=== PATIENT | female | born 1965 | race Caucasian/White ===

== ENCOUNTER 2017-01-08 10:10 | Inpatient (IN) ==
[2017-01-08 10:32] LABS: BASO% 0.5 % (0.0-0.8); EOS# 0.26 X1000 (0.0-0.7); EOS% 1.7 % (0.0-10.0); HEMATOCRIT 34.8 % (37.0-47.0); HEMOGLOBIN 10.2 g/dL (12.0-16.0); IMM GRAN# 0.09 X1000 (0.0-0.04); IMM GRAN% 0.6 % (0.0-0.5); LYMPH# 1.35 X1000 (1.2-3.4); LYMPH% 8.9 % (20.5-51.1); MANUAL DIFF NEEDED? NO; MCH 25.1 PG (27-31); MCHC 29.3 g/dL (33-37); MCV 85.7 FL (81-99); MONO# 1.63 X1000 (0.11-0.59); MONO% 10.7 % (1.7-9.3); MPV 10.7 FL (7.4-10.4); NEUT% 77.6 % (42.2-75.2); PLT 356 X1000 (130-400); RBC 4.06 XMIL (4.2-5.4)
--- NOTE | 2017-01-08 10:37 | PROVIDER DOCUMENTATION ---
This chart was entered by Mercedes Flores Scribe, acting as scribe for Alanna Gilbert CRNP. HPI-Respiratory General - General Chief Complaint: Shortness of Breath Stated Complaint: SOB/COPD Time Seen by Provider: 01/08/17 10:17 Source: patient Allergies/Adverse Reactions: Patient Allergies Allergy/AdvReac Type Severity Reaction Status Date / Time doxycycline Allergy RASH Verified 09/21/15 17:55 Penicillins Allergy Unknown Verified 09/21/15 17:55 Sulfa (Sulfonamide Allergy RASH Verified 09/21/15 17:55 Antibiotics) Home Medications: Home Medication List Medication Instructions Recorded Confirmed Last Taken Type Docusate Sodium [Colace] 100 mg PO BID 05/29/15 09/21/15 09/21/15 History Haloperidol Decanoate [Haldol 150 mg IM ORDERED 05/29/15 09/21/15 Unknown History Decanoate 100] [place] Carbonate 600 mg PO BID 05/29/15 09/21/15 09/21/15 History Metoprolol Tartrate 50 mg PO BID 05/29/15 09/21/15 09/21/15 History Zolpidem [Ambien] 5 mg PO QHS 05/29/15 09/21/15 09/20/15 History Olanzapine [Zyprexa] 2.5 mg PO QHS #30 tablet 06/05/15 09/21/15 09/20/15 Rx - History of Present Illness-Resp Nature of Presenting Problem: Pt is 51 y/o F presents to the ED with SOB. Pt states has been SOB for 4 days . Pt states stopped all psych meds 4 days ago. Pt states SOB has worsened. Pt's friends states Pt has a diagnosis of COPD. Quality of Pain: reports: tightness Severity in ED: reports: mild Onset/Duration: reports: 4 days ago Timing: reports: still present, getting worse Exposure: reports: unknown cause Cough Quality/Degree: reports: no cough Episode Frequency: no prior episodes Current Respiratory Medication Therapy: Initiated see nurses note Modifying Factors: improves with: nothing Associated Symptoms: reports: shortness of breath. denies: chest pain/soreness , cough, dizziness, earache, facial pain, fever/chills, flu-like symptoms, headache, heart racing, hurts to breathe, hyperventilating, lightheadedness, muscle/bodyaches, nasal congestion, nasal drainage, sinus pain, short of breath , sore throat, sweaty, wheezing Similar Symptoms Previously?: Yes Recently seen or treated by another doctor?: No Review of Systems - Adult - REVIEW OF SYSTEMS - ADULT Constitutional: reports: no symptoms reported Eyes: reports: no symptoms reported Ears, Nose, Mouth & Throat: reports: no symptoms reported Cardiovascular: reports: no symptoms reported Respiratory: reports: shortness of breath. denies: cough, wheezing Gastrointestinal: reports: no symptoms reported Genitourinary: reports: no symptoms reported Musculoskeletal: reports: no symptoms reported Integumentary: reports: no symptoms reported Neurological: reports: no symptoms reported Psychiatric: reports: no symptoms reported Endocrine: reports: no symptoms reported Hematologic/Lymphatic: reports: no symptoms reported Allergic/Immunologic: reports: no symptoms reported All Other Systems: Reviewed and Negative Past History - Adult - PAST MEDICAL HISTORY-ADULT Review of Records: reports: Nursing Assessment Review, Medications Reviewed, Social history reviewed & non-contributory. Major Childhood Illnesses: reports: denies history Cardiovascular: reports: HTN Respiratory: reports: COPD Gastrointestinal: reports: denies history Obstetrical/Gynecological: reports: denies history Genitourinary: reports: denies history Musculoskeletal: reports: denies history Neurological: reports: denies history Psychiatric: reports: bipolar Endocrine/Immune: reports: denies history Other Conditions: reports: denies history - PRIOR SURGERIES/PROCEDURES Surgical/Procedure History: reports: other (Bladder) - PRIOR HOSPITALIZATIONS Prior Hospitalizations: reports: none - IMMUNIZATION STATUS Childhood Immunizations: UTD Flu Vaccine: See Nurse Assessment - FAMILY HISTORY Family History: reviewed, not pertinent - SOCIAL HISTORY Smoking: quit less than 1 year, cigarettes Substance Use: denies Living Situation: family Physical Exam-General - PHYSICAL EXAM-ADULT Initial Vital Signs Reviewed: Yes - CONSTITUTIONAL General Appearance: appears well, alert, no apparent distress, obese - EYES Eyes: PERRL/EOMI, pink conjunctivae - HEAD, EARS, NOSE, MOUTH & THROAT HENMT: normocephalic/atraumatic, moist mucous membranes, normal ENT inspection - NECK Neck: supple, normal inspection - RESPIRATORY Respiratory: chest non-tender, lungs clear, normal breath sounds - CARDIOVASCULAR Cardiovascular: normal peripheral pulses, regular rate, rhythm - GASTROINTESTINAL (ABDOMEN) Abdominal Exam: normal bowel sounds, non tender, soft - LYMPHATIC Lymphatic: no adenopathy - MUSCULOSKELETAL Back Exam: normal inspection, no CVA tenderness, no vertebral tenderness Extremity: normal range of motion, non-tender, normal gait - SKIN Integumentary: normal color, normal turgor, warm/dry - NEUROLOGIC Neurologic: grossly normal - PSYCHIATRIC Psych/Mental Status: normal mood/affect, oriented x 3 Progress - PLAN OF CARE/RESULTS Progress/Plan/Lab Results: Vital Signs - 8 hr 01/08/17 10:14 01/08/17 10:46 Temperature 98.1 F Pulse Rate 95 H 96 H Respiratory Rate 26 H 18 Blood Pressure 154/92 126/071 O2 Sat by Pulse Oximetry 95 95 Laboratory Results - last 24 hr 01/08/17 01/08/17 01/08/17 10:24 10:24 10:24 WBC RBC Hgb Hct MCV MCH MCHC RDW Std Deviation Plt Count MPV Immature Gran % (Auto) Neut % (Auto) Lymph % (Auto) [place] % (Auto) Eos % (Auto) Baso % (Auto) Immature Gran # (Auto) Neut # (Auto) Lymph # (Auto) [place] # (Auto) Eos # (Auto) Baso # (Auto) PT INR APTT (Factor Assay) D-Dimer Sodium 132 L Potassium 3.3 L Chloride 100 Carbon Dioxide 23 L Anion Gap 10 BUN 15 Creatinine 1.3 H Estimated GFR/1.73 m2 43 BUN/Creatinine Ratio 12 Glucose 123 H Calculated Osmolality 267 Calcium 10.1 Magnesium 2.4 Total Bilirubin 0.30 AST 41 H ALT 41 H Alkaline Phosphatase 118 H Creatine Kinase 40 Troponin T 0.046 Anv-M-Iicrxkcvlbk Pept 63099 H Total Protein 6.3 Albumin 3.6 Globulin 3.0 Albumin/Globulin Ratio 1.0 Urine Source Urine Color Urine Clarity Urine pH Ur Specific [place] Urine Protein Urine Ketones Urine Blood Urine Nitrite Urine Bilirubin Urine Urobilinogen Urine Microscopic RBC Urine WBC Urine Microscopic WBC Ur Epithelial Cells Urine Glucose [place] 01/08/17 01/08/17 01/08/17 10:24 10:24 10:24 WBC 15.25 H RBC 4.06 L Hgb 10.2 L Hct 34.8 L MCV 85.7 MCH 25.1 L MCHC 29.3 L RDW Std Deviation 14.6 H Plt Count 356 MPV 10.7 H Immature Gran % (Auto) 0.6 H Neut % (Auto) 77.6 H Lymph % (Auto) 8.9 L [place] % (Auto) 10.7 H Eos % (Auto) 1.7 Baso % (Auto) 0.5 Immature Gran # (Auto) 0.09 H Neut # (Auto) 11.84 H Lymph # (Auto) 1.35 [place] # (Auto) 1.63 H Eos # (Auto) 0.26 Baso # (Auto) 0.08 PT 14.1 INR 1.06 APTT (Factor Assay) 30.4 D-Dimer 0.86 H Sodium Potassium Chloride Carbon Dioxide Anion Gap BUN Creatinine Estimated GFR/1.73 m2 BUN/Creatinine Ratio Glucose Calculated Osmolality Calcium Magnesium Total Bilirubin AST ALT Alkaline Phosphatase Creatine Kinase Troponin T Cxs-[id number]-Xxtzbjiolcc Pept Total Protein Albumin Globulin Albumin/Globulin Ratio Urine Source Urine Color Urine Clarity Urine pH Ur Specific [place] Urine Protein Urine Ketones Urine Blood Urine Nitrite Urine Bilirubin Urine Urobilinogen Urine Microscopic RBC Urine WBC Urine Microscopic WBC Ur Epithelial Cells Urine Glucose [place] 2.03 H* 01/08/17 12:00 WBC RBC Hgb Hct MCV MCH MCHC RDW Std Deviation Plt Count MPV Immature Gran % (Auto) Neut % (Auto) Lymph % (Auto) [place] % (Auto) Eos % (Auto) Baso % (Auto) Immature Gran # (Auto) Neut # (Auto) Lymph # (Auto) [place] # (Auto) Eos # (Auto) Baso # (Auto) PT INR APTT (Factor Assay) D-Dimer Sodium Potassium Chloride Carbon Dioxide Anion Gap BUN Creatinine Estimated GFR/1.73 m2 BUN/Creatinine Ratio Glucose Calculated Osmolality Calcium Magnesium Total Bilirubin AST ALT Alkaline Phosphatase Creatine Kinase Troponin T Vae-F-Hpxwobyhepx Pept Total Protein Albumin Globulin Albumin/Globulin Ratio Urine Source CLEAN CATCH Urine Color PINK Urine Clarity HAZY A Urine pH 7.0 Ur Specific [place] 1.005 Urine Protein 2+(100 mg/dL) A Urine Ketones NEGATIVE Urine Blood 4+ Urine Nitrite NEGATIVE Urine Bilirubin NEGATIVE Urine Urobilinogen NORMAL Urine Microscopic RBC TNTC A Urine WBC 2+ A Urine Microscopic WBC <10 Ur Epithelial Cells <10 Urine Glucose NEGATIVE [place] Orders Category Date Time Status Cardiac Monitoring DIRECTED Care 01/08/17 10:14 Active Saline Loc NOW Care 01/08/17 10:14 Active CHEST-2 VIEWS [RAD] Stat Exams 01/08/17 10:14 Completed ABG [RESP] Routine Lab 01/08/17 12:09 Ordered CBC WITH ELECTRONIC DIFF [HEME] Stat Lab 01/08/17 10:24 Completed CK PROFILE [SP CHEM] Stat Lab 01/08/17 10:24 Completed CK PROFILE [SP CHEM] Stat Lab 01/08/17 12:30 Ordered COMPREHENSIVE METABOLIC PANEL [CHEM] Stat Lab 01/08/17 10:24 Completed D-DIMER PL [COAG] Stat Lab 01/08/17 10:24 Completed LITHIUM [TDM] Stat Lab 01/08/17 10:24 Completed MAGNESIUM [CHEM] Stat Lab 01/08/17 10:24 Completed PRO B-NATRIURETIC PEPTIDE Stat Lab 01/08/17 10:[address]IME WITH INR PL [COAG] Stat Lab 01/08/17 10:[address] [COAG] Stat Lab 01/08/17 10:24 Completed TROPONIN T Stat Lab 01/08/17 10:24 Completed TROPONIN T Stat Lab 01/08/17 12:30 Ordered TSH Stat Lab 01/08/17 10:[address] W/POSS RFLX CULT [URINALYSIS] Stat Lab 01/08/17 12:00 Completed 0.9% Sodium Chloride Inj [Ns] 1,000 ml Med 01/08/17 11:07 Discontinued .ROUTE As Directed 0.9% Sodium Chloride Inj [Ns] 1,000 ml Med 01/08/17 11:51 Active IV 999 mls/hr EKG [EKG] Stat Ther 01/08/17 10:14 Draft EKG [EKG] Stat Ther 01/08/17 12:30 Ordered Discussed results and plan of care with patient. Patient agrees with plan and verbalizes understanding. Result Diagrams: 01/08/17 10:24 01/08/17 10:24 - EKG 1 Time of EKG reading by physician:: 10:41 EKG Read and Signed by:: Andrea Denise EKG Interpretation (*Must complete 3 of following elements*): Abnormal (T wave abnormality, consider lateral ischemia; prolonged QT) Rate: 95 Rhythm: sinus rhythm with frequent premature ventricular complexes Comments: left anterior fascicular block; - XRAY 1 XRAY Study: Chest XRAY Interpretation: Mild progressive enlargement of heart shadows. (Robyn) - CONSULTS/PCP/HOSPITALIST Notification #1 *Consult/PCP/Hospitalist*: Poison Control Time Discussed: 12:00 Reason/Comments: Consult Consult Disposition: other (Recommends ABG, and TSH with serial labs. If GI problems increase with worsening renal function patient may need dialysis.) #2 Consult: Dr. Arce Time Discussed: 12:36 Reason/Comments: Admission Consult Disposition: Admit Departure - Departure Date of Disposition Decision: 01/08/17 Time of Disposition Decision: 12:25 DIAGNOSIS: Renal insufficiency, Elevated liver enzymes, Elevated d-dimer CHF (congestive heart failure) Qualifiers: Congestive heart failure type: unspecified congestive heart failure type Congestive heart failure chronicity: acute Qualified Code(s): I50.9 - Heart failure, unspecified [place] toxicity Qualifiers: Encounter type: initial encounter Injury intent: undetermined intent Qualified Code(s): T56.894A - Toxic effect of other metals, undetermined, initial encounter Disposition: ADMITTED INPATIENT 09 Certified Medical Emergency: Emergent Condition: Stable Referrals and Follow-Ups: Molina Teran MD [Primary Care Provider] - - Critical Care Note This patient required my direct & personal management of CC.: No Attestation - Physician/ DAVY Attestation Patient care was provided by Advanced Practice Provider:: Yes Advanced Practice Provider:: Alanna Gilbert (The physician is on site and available for consultation but did not have face to face contact with the patient.) Advanced Practice Provider documentation review:: The Mid-level provider documentation, treatment plan and medical decision making was reviewed by the physician who agrees with all treatment and medical decision making by the MLP. This chart was documented by the indicated scribe, (Mercedes Flores Scribe) and accurately reflects the services I performed and decisions made by , Alanna Gilbert CRNP, as attested by the provider's signature.
[2017-01-08 10:45] LABS: ALBUMIN 3.6 g/dL (3.5-5.0); CALCIUM 10.1 mg/dL (8.8-10.2); MAGNESIUM 2.4 mg/dL (1.5-2.7); POTASSIUM 3.3 mmol/L (3.5-5.1); TOTAL BILIRUBIN 0.3 mg/dL (0.20-1.00); TOTAL PROTEIN 6.3 g/dL (6.3-8.3)
[2017-01-08 10:47] LABS: INR 1.06 (0.86-1.15); PROTIME 14.1 Seconds (12.1-15.5)
[2017-01-08 10:48] LABS: PTT PL 30.4 Seconds (22.6-43.9)
--- NOTE | 2017-01-08 10:53 | EKG Report ---
Test Performed on : 01/08/2017 10:41:14 AM Test Reason : CHEST PAIN Blood Pressure : / mmHG Vent. Rate : 095 BPM Atrial Rate : 095 BPM P-R Int : 204 ms QRS Dur : 116 ms QT Int : 394 ms P-R-T Axes : 049 -45 119 degrees QTc Int : 495 ms Sinus rhythm. with frequent premature ventricular complexes. Left anterior fascicular block T wave abnormality, consider lateral ischemia Prolonged QT Abnormal ECG When compared with ECG of 31-MAY-2015 19:10, Nonspecific T wave abnormality now evident in Inferior leads Unconfirmed Result
--- NOTE | 2017-01-08 11:03 | Diag Imaging Result Doc PS360 ---
CHEST-2 VIEWS - 01/08/2017 INDICATION: CP TECHNIQUE: COMPARISON: 09/21/2015 FINDINGS: There is mild enlargement of the heart shadow which has progressed since prior. Pulmonary vascularity is normal. No focal infiltrates, pneumothorax, or pleural effusion. IMPRESSION: Mild, progressive enlargement of the heart shadow. Electronically signed by Chris Carlson 01/08/2017 11:01 AM
[2017-01-08] MEDS ORDERED: NS 1,000 ML ONE (11:07)
[2017-01-08] MEDS ORDERED: NS 1,000 ML IV ONE ×3 (11:51→14:10)
[2017-01-08 12:09] LABS: URINE CULTURE PL NEEDED? NO
[2017-01-08 12:27] LABS: BILIRUBIN URINE NEGATIVE (NEGATIVE); BLOOD URINE 4+ (NEGATIVE); GLUCOSE URINE NEGATIVE (NEGATIVE); LEUKOCYTES URINE 2+ (NEGATIVE); NITRITE URINE NEGATIVE (NEGATIVE); PROTEIN URINE 2+(100 mg/dL) mg/dL (NEGATIVE); SP GRAVITY URINE 1.005; UROBILINOGEN URINE NORMAL
[2017-01-08 12:32] LABS: CLARITY HAZY (CLEAR); COLOR PINK; URINE EPITHELIAL CELLS <10 /HPF (<10); URINE RBC TNTC /HPF (<10); URINE SOURCE CLEAN CATCH; URINE WBC <10 /HPF (<10)
--- NOTE | 2017-01-08 14:33 | EKG Report ---
Test Performed on : 01/08/2017 12:54:03 PM Test Reason : repeat Blood Pressure : / mmHG Vent. Rate : 089 BPM Atrial Rate : 089 BPM P-R Int : 202 ms QRS Dur : 114 ms QT Int : 600 ms P-R-T Axes : 068 -47 090 degrees QTc Int : 730 ms Sinus rhythm. with frequent premature ventricular complexes. Left axis deviation Anterior infarct (cited on or before 08-JAN-2017) T wave abnormality, consider lateral ischemia Prolonged QT Abnormal ECG When compared with ECG of 08-JAN-2017 12:52, (Unconfirmed) premature atrial complexes. are no longer present Serial changes of Anterior infarct present Unconfirmed Result
[2017-01-08 14:44] LABS: BE -0.3 mmoll (-3.0-3.0); BLOOD TYPE ARTERIAL; DRAW SITE R RADIAL; METHB 0.6 % (0.0-1.5); O2(CT) 12.6 mL/dL (15.0-23.0); PCO2(98.6) 37 mmHg (35-45); PO2(98.6) 73 mmHg (60-100); SAMPLE BLOOD; SAO2 97.6 % (95.0-100.0); THB 9.4 g/dL (11.5-17.4); pH(98.6) 7.42 (7.35-7.45)
[2017-01-08 14:49] LABS: ALLEN TEST YES; MODALITY CANNULA
[2017-01-08] MEDS: ROCEPHIN 1 GM/NS 1 GM/50 ML IVPB IV SCH (15:11)
--- NOTE | 2017-01-08 15:34 | Diag Imaging Result Doc PS360 ---
RENAL STONE SEARCH - 01/08/2017 INDICATION: hematuria TECHNIQUE: A CT dose reduction protocol was used. COMPARISON: None FINDINGS: There is a small pericardial effusion visible. There is a simple cyst in the right lobe of the liver measuring about 3.4 cm. There are numerous phleboliths in the pelvis scattered everywhere. No radiodense renal stones. No hydronephrosis or hydroureter. No bowel obstruction or inflammation. Normal appendix. Urinary bladder, uterus, and rectum are normal. There is trace pelvic free fluid, presumably physiologic. 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 No acute bony lesions. IMPRESSION: Negative for renal stone disease. No acute disease. Electronically signed by Chris Carlson 01/08/2017 3:31 PM
--- NOTE | 2017-01-08 15:57 | HISTORY AND PHYSICAL ---
PRIMARY CARE PHYSICIAN: Dr. Teran. CHIEF COMPLAINT: Shortness of breath for 4 days that has progressively worsened. HISTORY OF PRESENTING ILLNESS: This is a 51-year-old female who presents to [facility] ER with complaints of shortness of breath for 4 days that has progressively worsened. States she gets fatigued with minimal exertion of less than 10 steps. States that she stopped all of her psych medications 4 days ago that included lithium, Artane, metoprolol and Ambien. Workup in the ER showed a white blood cell count of 15.25. Her D-dimer was 0.86. Sodium was 132, potassium 3.3, creatinine of 1.3. ProBNP was 10,556. TSH was 9.59. Her urinalysis showed negative nitrites, 4+ blood, 2+ white blood cells. Her lithium level was 2.03. She had a chest x-ray of mild progressive enlargement of the heart shadow. EKG was sinus rhythm with frequent PVCs at 95. REVIEW OF SYSTEMS: She denied any fever, chills, blurred vision, dizziness, chest pain, coughing. She is positive for shortness of breath. She denied any abdominal pain, constipation, diarrhea, burning or hurting with urination. PHYSICAL EXAMINATION: On arrival, she had a temperature of 98.1 degrees, pulse of 95, respirations 26, blood pressure 154/92, saturating 95% on room air. Currently saturating 97% on 2 L via nasal cannula. GENERAL: This is a 51-year-old female who is lying in the bed, and answers questions appropriately. HEENT: Normocephalic and atraumatic. Pupils are equal, round, reactive to light. Extraocular movements are intact. Oropharynx and nares are clear. NECK: Supple. LUNGS: Clear to auscultation bilaterally with equal lung expansion and chest wall movement. HEART: With regular rate and rhythm. No murmurs, rubs, or gallops. ABDOMEN: Soft, nontender, nondistended. Bowel sounds are present x4 quadrants. EXTREMITIES: No clubbing, cyanosis, or edema. NEUROLOGICAL: The cranial nerves 2-12 are grossly intact. ASSESSMENT: 1. [place] toxicity. 2. Leukocytosis. 3. Acute kidney injury. 4. Elevated D-dimer. 5. Hypokalemia. 6. Dehydration. 7. Hematuria. PLAN: She was admitted to the medical unit at [place], placed on telemetry. O2 per protocol. We will check an echocardiogram. We will check a bilateral lower extremity venous Doppler. With her creatinine being elevated at 1.3 we are going to do some gentle hydration of normal saline at 70 mL an hour. Recheck labs in the a.m. and if that is improved then we may can do a CTA of pulmonary arteriograms. Otherwise we will do a V/Q scan on Tuesday but I will evaluate that in the morning. We are going to do a renal stone search due to the hematuria. Place on Rocephin 1 gram IV q.24. Recheck a BMP and a CBC in the a.m. Continue her home medications except will hold her lithium and her Haldol Decanoate that she gets IM. Mom states it is due on the 12 of January so she should be able to get that from her doctor once she is discharged from the hospital. Her TSH is noted to be elevated and looking back at her previous ones they were within normal limits. We will get a free T4 also and make sure she has not developed a hypothyroidism. Dictated by ROSE MARIE Monroe for You Arce MD cc: ROSE MARIE Monroe MD Moses Awoniyi, MD
[2017-01-08] MEDS ORDERED: ZOFRAN IV PRN (16:34)
[2017-01-08] MEDS ORDERED: TYLENOL PO PRN (16:34)
[2017-01-08] MEDS ORDERED: LOVENOX SUBQ SCH (16:45)
[2017-01-08 17:24] LABS: CALCIUM 9.5 mg/dL (8.8-10.2); POTASSIUM 3.8 mmol/L (3.5-5.1)
--- NOTE | 2017-01-08 18:36 | Extremity Venous Study ---
Venous U/S Bilateral Legs - 01/08/2017 INDICATION: elevated ddimer TECHNIQUE: Bilateral lower extremity venous Doppler ultrasound COMPARISON: None FINDINGS: The deep veins are fully compressible. There is normal color and pulse wave Doppler signal. The deep veins are fully compressible. There is normal color and pulse wave Doppler signal. IMPRESSION: Negative exam. Electronically signed by Chris Carlson 01/08/2017 6:34 PM
[2017-01-08 21:11] LABS: MANUAL DIFF NEEDED? NO
[2017-01-08 21:13] LABS: BASO% 0.5 % (0.0-0.8); EOS# 0.23 X1000 (0.0-0.7); EOS% 1.8 % (0.0-10.0); HEMATOCRIT 30.5 % (37.0-47.0); IMM GRAN# 0.08 X1000 (0.0-0.04); IMM GRAN% 0.6 % (0.0-0.5); LYMPH# 1.57 X1000 (1.2-3.4); LYMPH% 12.5 % (20.5-51.1); MCH 25.8 PG (27-31); MCHC 29.5 g/dL (33-37); MCV 87.4 FL (81-99); MONO# 1.29 X1000 (0.11-0.59); MONO% 10.3 % (1.7-9.3); MPV 10.7 FL (7.4-10.4); NEUT% 74.3 % (42.2-75.2); PLT 301 X1000 (130-400); RBC 3.49 XMIL (4.2-5.4)
[2017-01-08 21:17] LABS: UR AMPHETAMINES QUAL NONE DETECTED (NONE DETECT); UR BARBITUATES QUAL NONE DETECTED (NONE DETECT); UR BENZODIAZEPIN QUAL NONE DETECTED (NONE DETECT); UR CANNABINOIDS QUAL NONE DETECTED (NONE DETECT); UR COCAINE QUAL NONE DETECTED (NONE DETECT); UR MDMA QUAL NONE DETECTED (NONE DETECT); UR METHADONE QUAL NONE DETECTED (NONE DETECT); UR METHAMPHETAMINE QUAL NONE DETECTED (NONE DETECT); UR OPIATES QUAL NONE DETECTED (NONE DETECT); UR OXYCODONE QUAL NONE DETECTED (NONE DETECT); UR PCP QUAL NONE DETECTED (NONE DETECT); UR TCA QUAL NONE DETECTED (NONE DETECT)
--- NOTE | 2017-01-08 21:19 | EKG Report ---
Test Performed on : 01/08/2017 9:12:27 PM Test Reason : [place] toxicity Blood Pressure : / mmHG Vent. Rate : 094 BPM Atrial Rate : 094 BPM P-R Int : 204 ms QRS Dur : 110 ms QT Int : 386 ms P-R-T Axes : 050 -36 128 degrees QTc Int : 482 ms Sinus rhythm. with frequent premature ventricular complexes. Left axis deviation ST \T\ T wave abnormality, consider lateral ischemia Prolonged QT Abnormal ECG When compared with ECG of 08-JAN-2017 12:54, (Unconfirmed) Nonspecific T wave abnormality now evident in Inferior leads T wave inversion more evident in Lateral leads QT has shortened Confirmed by Andrea Denise MD ([id number]) on 01/17/2017 10:20:38 PM
[2017-01-08] MEDS: AMBIEN PO SCH (21:27)
[2017-01-08] MEDS: COLACE PO SCH (21:27)
[2017-01-08] MEDS: LOPRESSOR PO SCH (21:27)
[2017-01-09 00:49] LABS: MANUAL DIFF NEEDED? NO
[2017-01-09 00:53] LABS: BASO% 0.6 % (0.0-0.8); EOS# 0.26 X1000 (0.0-0.7); EOS% 2.1 % (0.0-10.0); HEMATOCRIT 29.6 % (37.0-47.0); HEMOGLOBIN 8.6 g/dL (12.0-16.0); IMM GRAN# 0.05 X1000 (0.0-0.04); IMM GRAN% 0.4 % (0.0-0.5); LYMPH# 1.49 X1000 (1.2-3.4); LYMPH% 12.3 % (20.5-51.1); MCH 25.4 PG (27-31); MCHC 29.1 g/dL (33-37); MCV 87.3 FL (81-99); MONO# 1.37 X1000 (0.11-0.59); MONO% 11.3 % (1.7-9.3); MPV 10.7 FL (7.4-10.4); NEUT% 73.3 % (42.2-75.2); PLT 303 X1000 (130-400); RBC 3.39 XMIL (4.2-5.4)
[2017-01-09 06:28] LABS: BASO% 0.5 % (0.0-0.8); EOS# 0.28 X1000 (0.0-0.7); EOS% 2.4 % (0.0-10.0); HEMATOCRIT 30.5 % (37.0-47.0); HEMOGLOBIN 8.7 g/dL (12.0-16.0); IMM GRAN# 0.05 X1000 (0.0-0.04); IMM GRAN% 0.4 % (0.0-0.5); LYMPH# 1.28 X1000 (1.2-3.4); LYMPH% 11.1 % (20.5-51.1); MANUAL DIFF NEEDED? NO; MCH 25.1 PG (27-31); MCHC 28.5 g/dL (33-37); MCV 88.2 FL (81-99); MONO# 1.23 X1000 (0.11-0.59); MONO% 10.7 % (1.7-9.3); MPV 11.4 FL (7.4-10.4); NEUT% 74.9 % (42.2-75.2); PLT 302 X1000 (130-400); RBC 3.46 XMIL (4.2-5.4)
[2017-01-09 06:45] LABS: CALCIUM 9.2 mg/dL (8.8-10.2); POTASSIUM 3.4 mmol/L (3.5-5.1)
[2017-01-09] MEDS: LOPRESSOR PO SCH ×2 (09:42→21:21)
[2017-01-09] MEDS: COLACE PO SCH ×2 (09:42→21:21)
--- NOTE | 2017-01-09 09:57 | EKG Report ---
Test Performed on : 01/09/2017 09:37:34 AM Test Reason : Poision control recommendation Blood Pressure : / mmHG Vent. Rate : 088 BPM Atrial Rate : 088 BPM P-R Int : 208 ms QRS Dur : 110 ms QT Int : 402 ms P-R-T Axes : 033 -42 140 degrees QTc Int : 486 ms Normal sinus rhythm. Left axis deviation T wave abnormality, consider lateral ischemia Prolonged QT Abnormal ECG When compared with ECG of 08-JAN-2017 21:12, (Unconfirmed) premature ventricular complexes. are no longer present Confirmed by Andrea Denise MD ([id number]) on 01/17/2017 10:20:46 PM
[2017-01-09] MEDS ORDERED: SYNTHROID PO ONE (11:51)
[2017-01-09] MEDS: ARTANE PO SCH ×2 (12:37→21:20)
--- NOTE | 2017-01-09 14:55 | Diag Imaging Result Doc PS360 ---
ANGIOGRAM/PULMONARY ARTERIES - 01/09/2017 INDICATION: elev d dimer/sob TECHNIQUE: Axial CT images were obtained after administering intravenous contrast. Coronal MIP images were generated. A CT dose reduction protocol was used. COMPARISON: 06/03/2014 FINDINGS: There are numerous bilateral acute appearing pulmonary emboli involving essentially every segmental artery, and the right middle and lower lobar arteries. Many of these are occlusive. There is a small to moderate pericardial effusion. Stable benign-appearing cystic area in the right lobe of the liver. There is cardiomegaly. No infiltrates in the lungs. Bony structures are intact. IMPRESSION: Numerous acute bilateral pulmonary emboli. Relatively heavy clot burden. A report was immediately called to the patient's inpatient unit. Electronically signed by Chris Carlson 01/09/2017 2:53 PM
--- NOTE | 2017-01-09 16:00 | PROGRESS NOTE ---
DATE: 01/09/2017 SUBJECTIVE: The patient's history this morning is quite difficult to understand as it changes frequently. She states that she is short of breath and short of breath with any activity. Then she notes that she is short of breath when she lies flat in the bed and states it is better when she sits up. When inquired as to why she is lying flat in the bed instead of having the head of the bed elevated, she states that it does not make any change on her shortness of breath, which is what is corroborated by her mother. States that she is short of breath only when she gets up and moves around and then notes that she is short of breath only when she lies in the bed. Certainly, this makes her history quite difficult to follow this morning. PHYSICAL: Vital signs: Temperature 98, pulse 85, respiratory rate 18, blood pressure 121/60. Saturation 99% on 2 L. General: Patient is awake, alert, obese female who currently appears in no true respiratory distress. HEENT: Normocephalic, atraumatic. MICHAEL. Neck: Supple. CARDIOVASCULAR: Regular rate. Chest: Clear. Nonlabored. No crackles. No wheezing. Abdomen: Soft. Extremities: Moves all extremities. Neurologic: No changes. DIAGNOSTIC DATA: WBCs 11, hemoglobin and hematocrit 8 and 30. Potassium 3.4, creatinine 1.1. BNP 10,556. Thyroid stimulating hormones 9.5. ASSESSMENT: 1. [place] toxicity. [place] is currently down to 1.49. 2. Shortness of breath. Unclear as to the etiology of her shortness of breath. Certainly could be her lithium toxicity, could be her obesity and chronic failure to thrive. Could be her chronic deconditioning. Could be her hypothyroidism and certainly her elevated brain natriuretic peptide. 3. Hypothyroidism. We will place her on Synthroid. 4. Elevated proBNP. We will check an echocardiogram and we will continue to follow. Currently, her most recent chest x-ray yesterday was clear with no effusions. 5. Elevated D-dimer. Ultrasound is negative. CTA apparently was not done. We will order this and follow. cc: Yann Rick MD
[2017-01-09] MEDS: ROCEPHIN 1 GM/NS 1 GM/50 ML IVPB IV SCH (17:21)
[2017-01-09] MEDS: LOVENOX SUBQ SCH (17:22)
[2017-01-09] MEDS: AMBIEN PO SCH (21:21)
[2017-01-10 06:01] LABS: HEMATOCRIT 31.6 % (37.0-47.0); HEMOGLOBIN 8.9 g/dL (12.0-16.0); MCH 25.1 PG (27-31); MCHC 28.2 g/dL (33-37); MCV 89.3 FL (81-99); MPV 11.1 FL (7.4-10.4); RBC 3.54 XMIL (4.2-5.4)
[2017-01-10 06:19] LABS: ALBUMIN 3.1 g/dL (3.5-5.0); CALCIUM 9.4 mg/dL (8.8-10.2); MAGNESIUM 2.2 mg/dL (1.5-2.7); POTASSIUM 3.3 mmol/L (3.5-5.1); TOTAL BILIRUBIN 0.2 mg/dL (0.20-1.00); TOTAL PROTEIN 5.7 g/dL (6.3-8.3)
[2017-01-10 06:23] LABS: FREE T4 1.13 ng/dL (0.93-1.70)
[2017-01-10] MEDS: LOVENOX SUBQ SCH ×2 (06:43→17:45)
[2017-01-10] MEDS: SYNTHROID PO SCH (06:46)
[2017-01-10] MEDS ORDERED: SYNTHROID PO SCH (07:00)
[2017-01-10] MEDS ORDERED: KLOR-CON PO ONE (08:21)
--- NOTE | 2017-01-10 09:16 | PROGRESS NOTE ---
DATE: 01/10/2017 SUBJECTIVE: The patient notes that she is still having some shortness of breath, but has not really been out of bed. She denies any chest pains or palpitations. She denies any fevers or chills. She denies any dysuria, frequency, urgency. OBJECTIVE: Vital Signs: Reviewed. Temperature 97 degrees, pulse 88, respiratory rate 20, blood pressure 126/73, saturation 99% on 2 liters. General: The patient is awake, alert, oriented. She is currently in no respiratory distress. Speech is regular. Memory is intact. Neck: Supple. Cardiovascular: Regular rate. Chest: Relatively clear. Abdomen: Soft. Extremities: Moves all extremities. Neurologic: No changes. DIAGNOSTIC DATA: CT demonstrates numerous acute bilateral pulmonary emboli with a relatively heavy clot burden. Labs are stable. Hemoglobin and hematocrit are 8 and 30, WBCs down to 10. Potassium 3.3, creatinine 1.1. BNP is also decreased to 6400. ASSESSMENT: 1. Hypothyroidism. We will again increase her Synthroid to 75. 2. Elevated BNP, most likely secondary to pulmonary emboli, although we do not have an echocardiogram on the chart. Therefore, we will order an echocardiogram today. 3. Bilateral pulmonary emboli. The patient acknowledges that she has been very sedentary recently and has not been feeling well. 4. [place] toxicity has improved. 5. Acute kidney injury, resolved. 6. Hypokalemia. We will replace by mouth and recheck. 7. Obesity, certainly has increased her risk for pulmonary emboli. PLAN: We will continue Lovenox today. Consider changing over to Xarelto versus Coumadin in the morning, and we will follow. cc: Yann Rick MD
[2017-01-10] MEDS: COLACE PO SCH ×3 (10:02→20:16)
[2017-01-10] MEDS: ARTANE PO SCH ×3 (10:02→20:16)
[2017-01-10] MEDS: LOPRESSOR PO SCH ×3 (10:02→20:16)
--- NOTE | 2017-01-10 15:32 | ECHO REPORT ---
ORDER DATE: 01/09/2017 ECHOCARDIOGRAPHIC MEASUREMENTS: 1. Interventricular septum 1.2, left ventricular posterior wall 1.2, end diastolic diameter 5.7, left atrium 4.3, aorta 3. 2. Normal left ventricular cavity size. Reduced systolic function. Estimated ejection fraction of 40%. 3. Right ventricle is dilated with reduced right ventricular systolic function. 4. Aortic valve leaflets are trileaflet. Mitral valve was normal. Tricuspid valve was normal. 5. There is mild mitral regurgitation. 6. There is no aortic stenosis or regurgitation. 7. There is a [id number] tricuspid regurgitation. Peak velocity across the tricuspid valve was 2.6 m/sec. There is trace pulmonary regurgitation. 8. Anterior echo-free space suggestive of fat pad was noted. There is trivial posterior echo- free space suggestive of fat pad noted. Cannot rule out trace effusion. There is no evidence of tamponade. cc: MD Lou Coombs CRNP
[2017-01-10] MEDS: ROCEPHIN 1 GM/NS 1 GM/50 ML IVPB IV SCH (17:45)
[2017-01-10] MEDS: AMBIEN PO SCH ×2 (19:56→20:16)
[2017-01-10] MEDS ORDERED: HALOPERIDOL DECANOATE 150 MG IM SCH (21:45)
[2017-01-11] MEDS: LOVENOX SUBQ SCH ×2 (05:52→17:05)
[2017-01-11] MEDS: SYNTHROID PO SCH ×2 (05:52→06:35)
[2017-01-11 06:44] LABS: HEMOGLOBIN A1C 4.8 % (4.8-6.0)
[2017-01-11 07:08] LABS: HEMATOCRIT 32.3 % (37.0-47.0); HEMOGLOBIN 9.3 g/dL (12.0-16.0); MCH 25.5 PG (27-31); MCHC 28.8 g/dL (33-37); MCV 88.5 FL (81-99); MPV 11.1 FL (7.4-10.4); RBC 3.65 XMIL (4.2-5.4)
[2017-01-11 07:09] LABS: AGAP 6; ALKALINE PHOSPHATASE 103 U/L (32-104); BUN 9 mg/dL (8-22); CALCIUM 9.8 mg/dL (8.8-10.2); CHLORIDE 110 mmol/L (98-107); COSMO 280; GOT 16 U/L (10-30); GPT 31 U/L (10-36); MAGNESIUM 2.1 mg/dL (1.5-2.7); POTASSIUM 3.8 mmol/L (3.5-5.1); SODIUM 141 mmol/L (136-145); TCO2 25 mmol/L (25-35); TOTAL PROTEIN 5.6 g/dL (6.3-8.3)
[2017-01-11] MEDS: LOPRESSOR PO SCH ×2 (09:14→20:44)
[2017-01-11] MEDS: LITHIUM CARBONATE PO SCH ×2 (09:15→20:45)
[2017-01-11] MEDS: ARTANE PO SCH ×2 (09:15→20:44)
[2017-01-11] MEDS: COLACE PO SCH ×2 (09:15→20:44)
[2017-01-11] MEDS ORDERED: HALDOL DECANOATE IM SCH (11:00)
--- NOTE | 2017-01-11 12:52 | PROGRESS NOTE ---
DATE: 01/11/2017 SUBJECTIVE: Patient has multiple complaints this morning. She complains of shortness of breath, chest wall pain when she moves. Complains of shoulder pain, knee pain, back pain, abdominal pain, leg pain. Denies any true GI or issues. Denies any fevers or chills. PHYSICAL: Temp 97.5 degrees, pulse 82, respiratory rate 18, BP 125/59, sat 100% on 2 L.General: Patient is awake, alert. She is currently in no real respiratory distress. She is awake, alert, oriented. Neck: Supple. CV: Regular rate. Chest: Relatively clear. Decreased bilaterally but appears more effort related. Abdomen: Soft obese, nondistended. Extremities: Moves all extremities. DIAGNOSTIC DATA: WBC is 9. Hemoglobin and hematocrit 9 and 32. Potassium 3.8. Creatinine 0.8. TSH 4.15 and [place] 0.61. ASSESSMENT: 1. [place] toxicity resolved. [place] is actually back to normal. We will restart her home lithium dose and follow. 2. Leukocytosis resolved. 3. Hypothyroidism improved. 4. Pulmonary edema. Not likely related to congestive heart failure, improved. 5. Systolic congestive heart failure with an ejection fraction of 40% stable. 6. Bilateral multiple pulmonary emboli, stable. We will attempt to convert to Xarelto if her insurance will pay for Xarelto. If not, we will start her on Coumadin. 7. UTI. Continue Rocephin. PLAN: Hopefully, the patient will start to ambulate today. Discussed with her that she needs to get up and out of bed. We will restart her Haldol, her lithium and follow. Hopefully home in 1-2 days. cc: Yann Rick MD
[2017-01-11] MEDS ORDERED: XARELTO PO SCH (17:00)
[2017-01-11] MEDS: ROCEPHIN 1 GM/NS 1 GM/50 ML IVPB IV SCH (17:06)
[2017-01-11] MEDS: AMBIEN PO SCH (20:44)
[2017-01-11] MEDS ORDERED: COUMADIN PO SCH (21:00)
[2017-01-12 05:54] LABS: HEMATOCRIT 35.4 % (37.0-47.0); HEMOGLOBIN 10.1 g/dL (12.0-16.0); MCH 25.1 PG (27-31); MCHC 28.5 g/dL (33-37); MCV 88.1 FL (81-99); MPV 10.8 FL (7.4-10.4); RBC 4.02 XMIL (4.2-5.4)
[2017-01-12 05:58] LABS: AGAP 7; BUN 8 mg/dL (8-22); CALCIUM 10.1 mg/dL (8.8-10.2); CHLORIDE 106 mmol/L (98-107); COSMO 282; POTASSIUM 4.2 mmol/L (3.5-5.1); SODIUM 142 mmol/L (136-145); TCO2 29 mmol/L (25-35)
[2017-01-12] MEDS: SYNTHROID PO SCH (06:13)
[2017-01-12] MEDS: LOVENOX SUBQ SCH ×2 (06:14→17:17)
[2017-01-12 07:23] LABS: INR 0.97 (0.86-1.15); PROTIME 13.2 Seconds (12.1-15.5)
[2017-01-12] MEDS: LOPRESSOR PO SCH ×2 (09:50→20:54)
[2017-01-12] MEDS: COLACE PO SCH ×2 (09:50→20:54)
[2017-01-12] MEDS: ARTANE PO SCH ×2 (09:50→20:54)
[2017-01-12] MEDS: LITHIUM CARBONATE PO SCH ×2 (09:50→20:54)
[2017-01-12] MEDS ORDERED: SENOKOT PO ONE ×2 (10:07→12:15)
[2017-01-12] MEDS ORDERED: COUMADIN PO ONE (12:19)
--- NOTE | 2017-01-12 12:34 | Diag Imaging Result Doc PS360 ---
EXAM: US PELVIC NON-SERVICE REPRESENTATIVE COMPLETE HISTORY: COMPLICATED OVARIAN CYST, VAGINAL BLEEDING TECHNIQUE: Transvaginal imaging COMPARISON: None. FINDINGS: The uterus is retroflexed. It measures 9.6 x 7.8 x 6.7 cm. There is mild endometrial thickening with the two estrada combined measuring 1.3 cm. The right ovary measures 2.6 cm in length. The left ovary measures 3.4 cm in length. No free fluid. No adnexal mass. IMPRESSION: Mild endometrial thickening. Electronically signed by Sina Cortez 01/12/2017 12:32 PM
--- NOTE | 2017-01-12 15:03 | PROGRESS NOTE ---
DATE: 01/12/2017 SUBJECTIVE: The patient complains shortness of breath. She complains of shoulder pain, knee pain, back pain, abdominal pain, leg pain. The pains are intermittent. They come and go spontaneously. OBJECTIVE: Vital Signs: Blood pressure is 129/70 with a heart rate of 80, respirations 20, temperature 98.6 degrees oral with O2 saturations of 99-100% on 2 L nasal cannula. Cardiovascular: Regular rate and rhythm. S1, S2 appreciated. Pulmonary: Breath sounds are clear. They are diminished throughout. This appears to be more effort related as well as body habitus related. Gastrointestinal: Abdomen is soft, nontender, nondistended. Bowel sounds in all 4 quadrants. Neurologic: She is alert and oriented x3. LABORATORY: WBC is 9.8, with a hemoglobin of 10.1, hematocrit 35.4, platelets of 367,000. INR is 0.97 with a sodium of 142, potassium 4.2, BUN 8, creatinine 0.9, with a glucose of 104. DIAGNOSTICS: Transvaginal ultrasound revealed mild endometrial thickening with 2 estrada combined measuring 1.3 cm in a retroflexed uterus. Right ovary measures 2.6 cm in length. Left ovary measures 3.4 cm in length. No free fluid. No masses. ASSESSMENT: 1. [place] toxicity, resolved. 2. Bilateral pulmonary emboli. Due to the patient's insurance she is not a candidate for Xarelto nor Eliquis. We did attempt these medications and were denied. We were denied again after PAs has been seen in. We discussed this with the mother yesterday afternoon. The mother felt that she understood that the Xarelto would not be given if the hospitalist ordered it, but if her primary care physician did, they would be able to get it through Medicaid. She would not allow us to give Coumadin last night. She did allow Lovenox twice a day. This morning, she did speak to see someone and met with Medicaid. She was informed that Ms. Wong will not be a candidate for Xarelto or Eliquis as Medicaid will not pay for these medicines. Therefore, she allowed us to start Coumadin on her daughter. 3. Urinary tract infection. We will continue Rocephin. PLAN: 1. Hopefully, we will be able to get the patient up and out of bed. She is very hesitant to do so. We did discuss the importance of her getting up and moving around. 2. We will continue with Lovenox twice a day and with daily INRs heading for target for 2-3. Dictated by ROSE MARIE Garcia for Yann Rick MD cc: ROSE MARIE Garcia MD
[2017-01-12] MEDS: ROCEPHIN 1 GM/NS 1 GM/50 ML IVPB IV SCH (17:17)
[2017-01-12] MEDS: AMBIEN PO SCH (20:54)
[2017-01-13] MEDS: SYNTHROID PO SCH (06:06)
[2017-01-13] MEDS: LOVENOX SUBQ SCH ×2 (06:07→17:41)
[2017-01-13 06:27] LABS: INR 1.11 (0.86-1.15); PROTIME 14.6 Seconds (12.1-15.5)
[2017-01-13] MEDS: LACTULOSE PO SCH ×2 (08:42→22:05)
[2017-01-13] MEDS: ARTANE PO SCH ×2 (08:43→22:03)
[2017-01-13] MEDS: LITHIUM CARBONATE PO SCH ×2 (08:43→22:03)
[2017-01-13] MEDS: LOPRESSOR PO SCH ×2 (08:43→22:03)
[2017-01-13] MEDS: COLACE PO SCH ×2 (08:43→22:02)
--- NOTE | 2017-01-13 10:26 | PROGRESS NOTE ---
DATE: 01/13/2017 SUBJECTIVE: Patient without any new complaints today. States that she is tired, she is short of breath. Hurts all over, but this is not really changed. She does complain of tongue being sore for the past few days as well. PHYSICAL EXAMINATION: Vital Signs: Temperature 98, pulse 79, respiratory rate 18, BP 129/62, oxygen saturation 98% on room air. General: Patient is awake, alert. She is currently in no respiratory distress, obese female who is lying quietly in the bed. HEENT: Normocephalic, atraumatic. MICHAEL. Neck: Supple. CV: Regular rate. Chest: Decreased breath sounds but equal bilaterally, more effort driven. No wheezing, no crackles. Abdomen: Soft, obese, nondistended. Extremities: Moves all extremities. No changes. ASSESSMENT: 1. Bilateral pulmonary emboli. Her INR is still less than 2. Will continue Coumadin. 2. Geographic tongue. 3. Obesity. 4. Failure to thrive. 5. [place] toxicity, resolved. 6. Hypothyroidism, stable. PLAN: We will check labs in the a.m. The patient is in the hospital until her INR is greater than 2. We will continue to follow. Further orders as needed. Did discuss with patient that she needs to start getting out of bed and attempting to ambulate today. cc: Yann Rick MD
[2017-01-13] MEDS: PERIDEX MT SCH ×2 (11:22→22:05)
[2017-01-13] MEDS: ROCEPHIN 1 GM/NS 1 GM/50 ML IVPB IV SCH ×2 (16:44→17:15)
[2017-01-13] MEDS ORDERED: COUMADIN PO SCH ×2 (21:00)
[2017-01-13] MEDS: AMBIEN PO SCH (22:02)
[2017-01-13] MEDS: COUMADIN PO SCH (22:03)
[2017-01-14] MEDS: SYNTHROID PO SCH (06:11)
[2017-01-14] MEDS: LOVENOX SUBQ SCH ×2 (06:11→17:24)
[2017-01-14 06:48] LABS: HEMATOCRIT 34.9 % (37.0-47.0); MCH 24.9 PG (27-31); MCHC 28.7 g/dL (33-37); MCV 86.8 FL (81-99); MPV 10.6 FL (7.4-10.4); RBC 4.02 XMIL (4.2-5.4)
[2017-01-14 07:15] LABS: AGAP 8; ALBUMIN 3.4 g/dL (3.5-5.0); ALKALINE PHOSPHATASE 88 U/L (32-104); BUN 9 mg/dL (8-22); CALCIUM 9.8 mg/dL (8.8-10.2); CHLORIDE 110 mmol/L (98-107); COSMO 288; GOT 28 U/L (10-30); GPT 24 U/L (10-36); MAGNESIUM 2.5 mg/dL (1.5-2.7); POTASSIUM 4.3 mmol/L (3.5-5.1); SODIUM 145 mmol/L (136-145); TCO2 27 mmol/L (25-35); TOTAL BILIRUBIN < 0.15 mg/dL (0.20-1.00); TOTAL PROTEIN 5.9 g/dL (6.3-8.3)
[2017-01-14 07:22] LABS: INR 1.3 (0.86-1.15); PROTIME 16.5 Seconds (12.1-15.5)
[2017-01-14] MEDS: LACTULOSE PO SCH ×2 (09:49→21:06)
[2017-01-14] MEDS: ARTANE PO SCH ×2 (09:49→21:05)
[2017-01-14] MEDS: COLACE PO SCH ×2 (09:50→21:05)
[2017-01-14] MEDS: LITHIUM CARBONATE PO SCH ×2 (09:50→21:05)
[2017-01-14] MEDS: LOPRESSOR PO SCH ×2 (09:50→21:05)
[2017-01-14] MEDS: PERIDEX MT SCH ×2 (09:56→21:34)
[2017-01-14] MEDS ORDERED: BENADRYL PO PRN (11:35)
[2017-01-14] MEDS: ZYRTEC PO SCH (12:22)
--- NOTE | 2017-01-14 14:16 | PROGRESS NOTE ---
DATE: 01/14/2017 SUBJECTIVE: The patient has no new complaints today. She states she has less shortness of breath. She was able to perform a little more activity than yesterday without becoming short of breath. She denies chest pain, any GI or complaints. OBJECTIVE: Vital Signs: Blood pressure is 129/68 with a heart rate of 68, respirations are 18, temperature is 98.8 degrees oral with room air saturations of 97% to 100%. Cardiovascular: Regular rate and rhythm. S1, S2 appreciated. Pulmonary: Breath sounds are decreased, but clear throughout. No wheezes or crackles noted. Gastrointestinal: Abdomen is soft, nontender, nondistended with bowel sounds in all 4 quadrants. Extremities: No clubbing, cyanosis, or edema. Calves are nontender. Pulses are palpable x4. LABS: WBC is 8.5 with hemoglobin of 10, hematocrit 34.9, and platelets of 340. INR is 1.3. Sodium is 145, potassium 4.3, BUN 9, creatinine 1, with a glucose of 107. TSH is 4.45. ASSESSMENT: 1. Bilateral pulmonary emboli. Her INR is still less than 2, although it is beginning to increase. We will continue Coumadin and Lovenox. 2. Geographic tongue. 3. Obesity. 4. Failure to thrive. 5. [place] toxicity, resolved. 6. Hypothyroidism, stable. PLAN: We will continue to check daily labs. Once INR is greater than 2, she will be ready for discharge. I did discuss with the patient the importance of getting out of bed and walking in the roche. Dictated by ROSE MARIE Garcia for Yann Rick MD cc: ROSE MARIE Garcia MD
[2017-01-14] MEDS: ROCEPHIN 1 GM/NS 1 GM/50 ML IVPB IV SCH (16:53)
[2017-01-14] MEDS: COUMADIN PO SCH (21:05)
[2017-01-14] MEDS: AMBIEN PO SCH (21:05)
[2017-01-15] MEDS: LOVENOX SUBQ SCH (06:10)
[2017-01-15] MEDS: SYNTHROID PO SCH (06:10)
[2017-01-15 07:15] LABS: INR 2.72 (0.86-1.15); PROTIME 28.8 Seconds (12.1-15.5)
[2017-01-15] MEDS ORDERED: COUMADIN PO SCH (08:19)
[2017-01-15] MEDS: LACTULOSE PO SCH (09:21)
[2017-01-15] MEDS: LOPRESSOR PO SCH (09:21)
[2017-01-15] MEDS: PERIDEX MT SCH (09:21)
[2017-01-15] MEDS: COLACE PO SCH (09:21)
[2017-01-15] MEDS: ZYRTEC PO SCH (09:21)
[2017-01-15] MEDS: ARTANE PO SCH (09:22)
[2017-01-15] MEDS: LITHIUM CARBONATE PO SCH (09:22)
[2017-01-15 11:47] VITALS: BP 137/64
--- NOTE | 2017-01-16 07:05 | DISCHARGE SUMMARY ---
ADMISSION DATE: 01/08/2017 DISCHARGE DATE: 01/15/2017 DIAGNOSES: 1. [place] toxicity, resolved. 2. Leukocytosis, resolved. 3. Acute kidney injury, resolved. 4. Bilateral pulmonary embolus with a heavy clot burden. 5. Hypokalemia, resolved. 6. Dehydration, resolved. 7. Obesity. DIAGNOSTICS: 1. Lower extremity Dopplers revealed no deep venous thrombosis. 2. Pulmonary arteriogram revealed heavy clot burden with bilateral pulmonary embolus. 3. Pelvic ultrasound revealed mild endometrial thickening. HOSPITAL COURSE: Ms. Wong presented to the emergency room complaining of shortness of breath that had been progressively increasing over the 4 days prior. She was found have bilateral pulmonary emboli with a heavy clot burden. She was given supplemental oxygen. She was started on Lovenox. This was able to be transitioned over to warfarin. She did have an elevated lithium level. This was held and once it dropped to normal limits, we did continue her lithium. She has been stable with this. We did trend her electrolytes and replete as appropriate. Over the last few days, she has progressively increased her activity. She is able to do her normal activities of daily living and walk up and down the roche without shortness of breath. PHYSICAL EXAMINATION: Cardiovascular: Regular rate and rhythm. S1 and S2 are appreciated. Pulmonary: Breath sounds are clear. No increased work of breathing noted. Gastrointestinal: Abdomen large, soft, nontender, nondistended. Bowel sounds in all 4 quadrants. Neurologic: She is alert and oriented x3. Cranial nerves 2-12 grossly intact. Discharge Vital Signs: Blood pressure is 137/64, with a heart rate of 77, respirations are 20, temperature is 98.2 degrees, with room air saturations of 96-99%. DISCHARGE MEDICATIONS: 1. Haldol 150 mg monthly as ordered. 2. Colace 100 b.i.d. 3. Ambien 10 mg at bedtime. 4. Metoprolol tartrate 25 b.i.d. 5. [place] 600 mg b.i.d. 6. Warfarin 5 mg daily as directed. She has been instructed to hold her warfarin tonight. 7. Synthroid 75 mcg daily. She has been instructed to hold her warfarin tonight, Tuesday night, to restart it 5 mg Tuesday and to have an INR drawn either at [facility] or [facility] Tuesday morning. This is to be called to her primary care physician, Dr. Teran. The mother and the daughter have been instructed to call Dr. Teran's office by Tuesday at the latest regarding the level to receive further dosing instructions. FOLLOWUP: 1. Dr. Teran's office in the next 1-[address] Childs. She has an appointment on January 26 at 1 o'clock p.m. to establish care DISPOSITION: She is being discharged home in stable condition with family members. This is a greater than 30 minutes discharge. Dictated by ROSE MARIE Garcia for Yann Rick MD cc: ROSE MARIE Garcia MD MTDD
--- NOTE | 2017-03-26 08:16 | ED EKG INTERP ---
This chart was entered by Mercedes Flores Scribe, acting as scribe for Andrea Denise MD. EKG Interpretation - EKG Time of EKG reading by physician:: 12:54 EKG Read and Signed by:: Andrea Denise EKG Interpretation (*Must complete 3 of following elements*): Abnormal (T wave abnormality, consider lateral ischemia) Rate: 89 Rhythm: sinus rhythm with frequent premature ventricular complexes Comments: left axis deviation; anterior infarct, age undetermined; prolonged QT Attestation - Physician/ DAVY Attestation Patient care was provided by Advanced Practice Provider:: Yes Advanced Practice Provider documentation review:: The Mid-level provider documentation, treatment plan and medical decision making was reviewed by the physician who agrees with all treatment and medical decision making by the MLP. The physician spent face to face time with patient:: No Advanced Practice Provider documentation review:: Supervising physician onsite and consulted in the evaluation and care of this patient. The physician did not have a face to face encounter with the patient. This chart was documented by the indicated scribe, (Mercedes Flores Scribe) and accurately reflects the services I performed and decisions made by me, Andrea Denise MD, as attested by the provider's signature.
== END 2017-01-15 14:44 | disposition home or self-care (01) ==
LOC: P.ED 10:10 → P.MEDSURG 12:56 → SUATTDRO 12:56 → P.MEDSURG 13:17
PROVIDERS: ATTEND Family Medicine